=== PATIENT | female | born 1985 | race Two or more races ===

== ENCOUNTER 2017-10-18 22:13 | Emergency (ER) | payer BC, OTHER ==
[~2017-10-18] VITALS: Ht 167.6 cm; Wt 60.3 kg
[~2017-10-18 22:13] MED LIST: ALBU2.5V13; FLUT12AE5
--- NOTE | 2017-10-18 22:26 | NUR ---
PT AMBULATORY TO ER BED 7. PT BIB SELF C/O ANXIETY AFTER TAKING STEROIDS. PT PLACED IN GOWN AND ON OPERATIONS INTELLIGENCE. VSS/RESP EVEN UNLABORED/NAD NOTED/AFEBRILE/SKIN WARM AND DRY/DENIES N-V-D/AOX4. AWAITING MD LIU.
--- NOTE | 2017-10-18 22:30 | NUR ---
AT BEDSIDE FOR EVAL.
--- NOTE | 2017-10-19 00:02 | NUR ---
Patient discharged to home in stable condition. Written and verbal after care instructions given. Patient verbalizes understanding of instruction. Patient ambulatory with a steady gait.
[2017-10-19 00:04] VITALS: BP 139/84
== END 2017-10-19 00:05 | disposition home or self-care (01) ==
LOC: ER 22:14
DX: F41.9 Anxiety disorder, unspecified (principal); J45.909 Unspecified asthma, uncomplicated
CPT/HCPCS: A4606; Z7610